=== PATIENT | male | born 1980 | race Caucasian/White ===

== ENCOUNTER 2016-09-25 16:14 | Emergency (ER) | payer SELFPAY ==
[~2016-09-25] VITALS: Ht 180.3 cm; Wt 72.0 kg
[~2016-09-25 16:14] MED LIST: POLY10O EACH EYE
[2016-09-25 16:20] VITALS: BP 108/73; PULSE 92; RESP 16; TEMP 97.6; O2SAT 97
[2016-09-25] MEDS ORDERED: MEDR4PAK PO (16:53)
[2016-09-25] MEDS ORDERED: ALBUAER3 INH (16:53)
[2016-09-25] MEDS ORDERED: BENZ100 PO (16:53)
--- NOTE | 2016-09-25 16:58 | PD ---
HPI Chief Complaint: Cold / Flu Symptoms Time Seen by Provider: 16:53 Travel History International Travel<30 days: No Contact w/Intl Traveler<30days: No Traveled to known affect area: No History of Present Illness HPI Patient is a 36-year-old male smoker with a 5 day history of nasal congestion and cough. Patient states he's had nasal congestion, yellow rhinorrhea, facial pain and pressure, and sore throat, body aches and cough for 5 days. Cough is a thin yellow to brown sputum. Patient endorses dyspnea and mild wheezing. No history of asthma or COPD. He denies chest pain. He states 3 days ago he had a fever of "102 point something ". He is used OTC cough and cold medications. He did not receive influenza vaccine. States he has had acute bronchitis several times in the past. 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 SKIN: Warm and dry. Good turgor without tenting. HEAD: Normocephalic and atraumatic. EYES: PERRL bilaterally, 5mm. EOMI bilaterally. No injection or icterus present. No proptosis. Lids without edema or erythema. ENT: Bilateral ear canals are non-edematous/non-erythematous without otorrhea. Bilateral TMs have intact landmarks and without distortion, perforation, air- fluid level or erythema. Nasal mucosa erythematous and edematous without discharge, septum intact and midline. Buccal mucosa pink and moist. Oropharynx free of erythema, tonsillar hypertrophy, masses, swelling, asymmetry and exudates. Uvula midline and airway patent. NECK: Supple, no meningeal signs. Trachea midline, no JVD. No cervical or facial lymphadenopathy. CARDIOVASCULAR: Regular rate and rhythm without murmurs, rubs, clicks or gallops. Radial and posterior tibial pulses 2+ bilaterally. No pedal edema. RESPIRATORY: Clear to auscultation bilaterally with symmetrical rise and fall, no distress or use of accessory muscles. Speaks in full sentences. No stridor , tripoding or drooling. GASTROINTESTINAL: Non-tender, non-distended. Normal bowel sounds all 4 quadrants. No masses or organomegaly present. MUSCULOSKELETAL: No gait disturbances. Patient freely moving all four extremities spontaneously. Extremities without clubbing, cyanosis, or edema. No obvious deformities. NEUROLOGIC: CN II-XII grossly intact. Awake and alert. Motor grossly within normal limits. Normal speech. PSYCHIATRIC: Appropriate mood and affect; insight and judgment normal. Data Data Last Documented VS Vital Signs Date Time Temp Pulse Resp B/P Pulse Ox O2 Delivery O2 Flow Rate FiO2 09/25/16 16:35 18 97 Room Air 09/25/16 16:20 97.6 92 108/73 MDM Medical Decision Making Medical Screen Exam Complete: Yes Emergency Medical Condition: Yes Differential Diagnosis Acute bronchitis versus viral syndrome versus pneumonia unlikely Narrative Course Patient 36-year-old male 5 day history of symptoms and physical suggestive of acute bronchitis, most likely viral. He is afebrile and nontoxic appearing. Lungs clear to auscultation. No increased work of breathing. O2 saturation on room air is 97%. No evidence of bacterial foci on exam. Patient given Medrol Dosepak, pro-air inhaler and Tessalon Perles to help with bronchitis. Recommend smoking cessation.See discharge paperwork for further instructions. The plan was discussed with the patient who acknowledged their understanding and agreement. Reinforced the follow-up with primary care is critically important. Patient instructed on emergent conditions that should prompt return to ED. Diagnosis Primary Impression: Acute bronchitis Qualified Code: J20.9 - Acute bronchitis, unspecified organism Patient Instructions: Acute Bronchitis (ED), General Instructions Additional Instructions: Take medication as prescribed OTC Mucinex, cough suppressants, and decongestants as needed OTC Tylenol or Ibuprofen for fever and discomfort Drink lots of fluid to help clear mucous/drainage and stay hydrated Recommend stop smoking as this will cause long-term heart and lung diseases Follow up with PCP in 2 days Return to the ED for any acute worsening of symptoms Med/Other Pt SpecificInfo: Prescription(s) given Scripts Benzonatate (Tessalon Perles)100 Mg [id number] Mg PO TID PRN (COUGH) #20 CAP Prov:Duane Allen MD 09/25/16 Albuterol 8.5 GM Inh (Proair Hfa 8.5 GM Inh)90 Mcg/Act Aer2 Puff INH Q4-6H PRN ( SHORTNESS OF BREATH) #1 INHALER 108 mcg/actuation Prov:Duane Allen MD 09/25/16 Methylprednisolone Dosepak (Medrol Dosepak)4 Mg Dspk4 Mg PO DIRECTED #1 DSPK Per Pharmacist direction Prov:Duane Allen MD 09/25/16 Disposition: 01 DISCHARGE HOME Condition: Stable Piyush Akins III Sep 25, 2016 16:58
== END 2016-09-25 17:15 | disposition home or self-care (01) ==
LOC: PHEFT 16:14
DX: J20.9 Acute bronchitis, unspecified (principal); K21.9 Gastro-esophageal reflux disease without esophagitis; B19.20 Unspecified viral hepatitis C without hepatic coma; F17.210 Nicotine dependence, cigarettes, uncomplicated
CPT/HCPCS: 99283